=== PATIENT | male | born 1975 | race Caucasian/White ===

== ENCOUNTER 2017-05-17 11:06 | Outpatient (CLI) | payer OTHER | END 2017-05-17 11:07 | disposition critical access hospital (66) | LOC: EMS 11:06 | PROVIDERS: ATTEND Surgery | DX: R44.9 Unspecified symptoms and signs involving general sensations and perceptions (principal) | CPT/HCPCS: A0425; A0427 ==

== ENCOUNTER 2017-05-17 11:33 | Emergency (ER) | payer OTHER ==
[2017-05-17] MEDS ORDERED: methylPREDNISolone SUCCINATE 125 MG/2 ML VIAL IVP STA (11:51)
[2017-05-17] MEDS ORDERED: diphenhydrAMINE INJ 50 MG/ML VIAL IVP STA (11:51)
[2017-05-17] MEDS ORDERED: EPINEPHrine 0.3 MG/0.3 ML SYRINGE IM ONE (11:51)
[2017-05-17] MEDS ORDERED: SODIUM CHLORIDE 0.9% 1,000 ML IV ONE (11:52)
[2017-05-17] MEDS ORDERED: EPINEPHrine 1 MG/ML AMP ONE (11:57)
[2017-05-17] MEDS ORDERED: diphenhydrAMINE INJ 50 MG/ML VIAL ONE (12:01)
[2017-05-17] MEDS ORDERED: methylPREDNISolone SUCCINATE 125 MG/2 ML VIAL ONE (12:02)
[2017-05-17 13:58] VITALS: BP 130/74
--- NOTE | 2017-05-17 15:23 | ED Physician Documentation ---
History of Present Illness - Stated complaint Stated Complaint: ALLERGIC REACTION/DIZZY/LOGAN - Chief complaint Chief Complaint: Allergic Rx - History obtained from History obtained from: Patient (pt has allergy to peanuts stated that he ate donut and then started to have problems breathing. states that he ahs no rash, did not have his epi pen with him.) Review of Systems Ten Systems: 10 systems reviewed and negative Constitutional: denies: Fever, Chills Cardiac: denies: Chest pain / pressure, Palpitations Respiratory: reports: Dyspnea, Cough. denies: Hemoptysis GI: denies: Abdominal Pain, Nausea, Vomiting, Constipation, Diarrhea : denies: Dysuria Skin: denies: Rash, Lesions Musculoskeletal: denies: Back pain, Extremity pain, Joint swelling Neurologic: denies: Generalized weakness, Altered mental status, Headache, LOC PD PAST MEDICAL HISTORY - Past Medical History Past Medical History: Yes Respiratory: Asthma - Past Surgical History Past Surgical History: No - Present Medications Home Medications: Ambulatory Orders Medication Instructions Recorded Confirmed Albuterol Sulfate [Proair Hfa 05/17/17 Inhaler] Epinephrine [Epipen 2-Juan] 05/17/17 - Allergies Allergies/Adverse Reactions: Allergies Allergy/AdvReac Type Severity Reaction Status Date / Time peanut Allergy Anaphylaxis Verified 05/17/17 11:46 - Social History Does the pt smoke?: No Smoking Status: Never smoker - Immunizations Immunizations are current?: Yes PD ED PE NORMAL - Vitals Vital signs reviewed: Yes - General General: Alert and oriented X 3, Well developed/nourished. No: No acute distress (moderate distress) - HEENT HEENT: Atraumatic, Moist mucous membranes - Cardiac Cardiac: No murmur. No: RRR (tachycardic but regular) - Respiratory Respiratory: No respiratory distress, Clear bilaterally - Abdomen Abdomen: No: Soft, Non tender - Derm Derm: Normal color, Warm and dry, No rash - Extremities Extremities: No deformity - Neuro Neuro: Alert and oriented X 3, Normal speech Eye Opening: Spontaneous Motor: Obeys Commands Verbal: Oriented GCS Score: 15 - Psych Psych: Normal mood, Normal affect Results - Vitals Vitals: Vital Signs - 24 hr 05/17/17 05/17/17 05/17/17 11:41 11:50 12:06 Temperature 36.8 C Heart Rate 118 H 103 H 117 H Respiratory 17 19 18 Rate Blood Pressure 65/45 L 112/57 L O2 Saturation 96 93 98 05/17/17 05/17/17 05/17/17 12:19 12:59 13:57 Temperature Heart Rate 85 83 87 Respiratory 16 15 16 Rate Blood Pressure 112/57 L 128/77 130/74 O2 Saturation 96 97 98 Oxygen O2 Source Room air PD MEDICAL DECISION MAKING - ED course Complexity details: d/w patient ED course: pt with known allergy and probable exposure with shortness of breath. was given epi and benadryl and steroids in the ER. pt improved and had no return of symptoms after observation. he has epi pen at home with refills on the rx. we discussed this and discussed return precautions. Departure - Departure Disposition: 01 Home, Self Care Clinical Impression: Anaphylaxis Condition: Good Instructions: ED Anaphylaxis General, EpiPen Auto Injector Dc Follow-Up: primary, care provider [Other] Comments: Recommend that you carry the Epi pen with you. If you use it come back to the ER. return to the ER for any new or worsening symptoms.
== END 2017-05-17 15:30 | disposition home or self-care (01) ==
LOC: ED 11:33
DX: T78.01XA Anaphylactic reaction due to peanuts, initial encounter (principal); J45.909 Unspecified asthma, uncomplicated
CPT/HCPCS: 96361; 96372; 96374; 96375; 99283; 99284